=== PATIENT | male | born 1950 | race Caucasian/White ===

== ENCOUNTER 2017-05-09 10:25 | Emergency (ER) | payer MEDICARE, OTHER ==
--- NOTE | 2017-05-09 11:13 | ERNOTE ---
GI Bleeding/Rectal Pain ER Date of Service: 05/09/17 Presenting Symptoms: dark/tarry stools Time Seen by Provider: 05/09/17 10:57 Source: patient, RN notes reviewed Exam Limitations: no limitations Immunizations: IMMUNIZATION HX Immunizations Up to Date No History of Influenza Vaccine No Hx Pneumococcal Vaccination No Allergies/Adverse Reactions: Allergies Penicillins Allergy (Verified 06/08/15 04:27) Home Medications: HOME MEDICATIONS Timolol [Betimol] 5 ml OP BID 06/08/15 [Last Taken Unknown] Narrative: 66 year old male presents to the ED after having a bloody stool earlier this morning. He reports passing dark colored blood with stool for about 45 minutes. He had diarrhea 2 days ago but had a normal bowel movement yesterday. He is having mild discomfort in the left side of his abdomen, but denies any other associated symptoms. Date (Duration): 05/09/17 Quality/Severity: Present: mild, aching Nausea/Vomiting: Present: none Abdominal Pain: Present: LUQ, LLQ Rectal Bleeding: Present: blood mixed with stool Associated Symptoms: Denies: constipation/hard stools, back pain, fainting, dizziness, light headedness, rectal pain Prior Treament: Denies: recently seen, similar symptoms before Review of Systems - Review of Systems Constitutional: Absent: fever, chills, malaise EYE: Present: no symptoms reported ENT: Present: no symptoms reported Respiratory: Absent: shortness of breath, cough Cardiology: Absent: chest pain, palpitations, syncope Gastrointestinal/Abdominal: Present: abdominal pain. Absent: nausea, vomiting, eating less, drinking less Genitourinary: Absent: dysuria, hematuria Musculoskeletal: Absent: back pain, joint pain Skin: Absent: rash, lesions Neurological: Absent: headache, dizziness/light-headedness, weakness, numbness, tingling Endocrine: Present: no symptoms reported Hematologic/Lymphatic: Absent: easy bruising, easy bleeding Psych: Present: no symptoms reported - Patient's Past Medical History Patient History - Medical: Glaucoma Patient History - Cardiac/Respiratory: No pertinent hx Patient History - Cancer: No Hx of Cancer Patient History - Surgical Procedures: Colonoscopy - Age 42, Other Patient History - Other: None - Family History Father Family History - Medical: , Alcohol Abuse Family History - Cardiac/Respiratory: Cardiac Arrest, Myocardial Infarction mom Family History - Medical: , Diabetes Type 2 - Social History Living Situations: spouse Abuse History: No History of abuse Psych History: No pertinent hx Smoking Status: Current every day smoker Have you smoked in the past 12 months: Yes Do you dip or chew tobacco: No Alcohol Use: sober Drug Use: none - Immunizations Immunizations Up to Date: No Hx Pneumococcal Vaccination: No History of Influenza Vaccine: No Physical Exam - Physical Exam General Appearance: Present: wd/wn, alert, no apparent distress Head Exam: Present: normal inspection Ears, Nose, Throat: Present: normal ENT inspection, normal pharynx Neck: Present: normal inspection, nontender, supple Respiratory: Present: no respiratory distress, normal breath sounds, no accessory muscle use, lungs clear Cardiovascular/Chest: Present: regular rate, rhythm, no murmur, normal peripheral pulses Gastrointestinal/Abdominal: Present: normal bowel sounds, nondistended, soft, tenderness - Mild, left upper and lower quads Rectal Exam: Present: nontender, normal rectal tone, blood-streaked stool, hemorrhoids - External, other - Dried blood present externally but no active bleeding at time of exam Back Exam: Present: normal inspection, normal range of motion, no CVA tenderness Extremity Exam: Present: normal inspection, normal range of motion, no edema Neurological Exam: Present: alert, oriented, normal mood/affect, no motor/ sensory deficits Skin Exam: Present: normal color, warm/dry ED Progress - Results and Orders Patient's Lab Results:: I have reviewed the patient's lab results. - Vital Signs Patient's Vital Signs:: I have reviewed the patient's vital signs. Vital Signs: Vital Signs 05/09/17 10:39 Temperature 36.5 C Pulse Rate 91 Respiratory 18 Rate Blood Pressure 171/100 O2 Sat by Pulse 96 Oximetry - CT/Ultrasound CT/Ultrasound Narrative: CT abdomen/pelvis: IMPRESSION: 1. Diverticulosis without evidence for diverticulitis 2. Circumferential bladder wall thickening as discussed 3. Pleural thickening bilaterally may be due to prior asbestos 4. Additional comments as above Electronically signed by Delta Moore M.D.. - Progress/Reassessment Chief Complaint: GI Bleed Progress:: Unchanged Plan - Plan Plan: Patient has had liquid bloody stools in the department after drinking gastroview. He was having mild left sided abdominal pain, but reports this resolved after he had diarrhea. Patient scheduled for bleeding scan as an outpatient tomorrow morning. Further treatment pending those results. Instructed to return if symptoms worsen overnight. Patient in agreement with plan. Departure Clinical Impression: Lower GI bleed - Departure Disposition: Home Follow Up Needed Condition: Stable Instructions: Bloody Diarrhea Additional Instructions: Bleeding scan tomorrow morning at 9:00 a.m. - do not go home until you have your results Return to ER if you have new or worsening symptoms before then
[2017-05-09 11:23] LABS: Hematocrit 49.5 % (42.0-52.0); Hemoglobin 17.4 gm/dL (13.5-18.0); Mean Cell Volume 85.5 fl (78-100); Mean Corpuscular Hemoglobin 30.1 pg (27-31); Mean Corpuscular Hgb Conc 35.2 g/dl (32-36); Platelet Count 305 K/mm3 (150-450); Red Blood Count 5.79 M/mm3 (4.7-6.0); Red Cell Distribution Width 14.2 % (11.5-14.0); White Blood Count 10.7 K/mm3 (4.0-10.5)
[2017-05-09 11:24] LABS: Urine Bilirubin Negative (NEGATIVE); Urine Blood Negative /ul (NEGATIVE); Urine Ketone Negative (NEGATIVE); Urine Nitrite Negative (NEGATIVE); Urine Protein Negative (NEGATIVE); Urine Urobilinogen Normal (NORMAL)
[2017-05-09 11:29] LABS: Urine Appearance Clear; Urine Bacteria None Seen; Urine Color Yellow; Urine RBC None Seen /hpf (0-5); Urine WBC None Seen /hpf (0-5)
[2017-05-09 11:34] LABS: Prothrombin Time (Patient) 10.1 Seconds (9.0-11.0)
[2017-05-09 11:35] LABS: Albumin * 3.8 gm/dl (3.4-5.0); Anion Gap 13.9 mmol/L (6.8-13.8); BUN/Creatinine Ratio 13.8 (9.0-21.6); Bilirubin, Total 0.5 mg/dL (0.0-1.1); Calcium * 9.2 mg/dL (7.9-10.9); Carbon Dioxide 26.4 mmol/L (24-32.6); Potassium 4.3 mmol/L (3.4-4.6); Total Protein 7.7 gm/dL (6.2-8.2)
[2017-05-09 11:36] LABS: INR 1.01 INR (0.90-1.10); Partial Thrombolplastin Time 24.5 Seconds (24-32)
[2017-05-09] MEDS ORDERED: DIATRIZOATE MEGLUMINE, SODIUM 30 ML BTL ONE (12:25)
[2017-05-09 16:09] VITALS: BP 186/109
== END 2017-05-09 16:05 | disposition home or self-care (01) ==
LOC: ER 10:25
DX: K92.2 Gastrointestinal hemorrhage, unspecified; F17.200 Nicotine dependence, unspecified, uncomplicated; H40.9 Unspecified glaucoma